=== PATIENT | male | born 1975 | race Caucasian/White ===

== ENCOUNTER 2025-08-23 09:20 | Outpatient (CLI) | payer OTHER, SELFPAY | END 2025-08-23 09:21 | disposition home or self-care (01) | LOC: NFLDREF 08-25 10:09 | PROVIDERS: Visit Provider Physician Assistant Medical | DX: Z00.00 Encounter for general adult medical examination without abnormal findings (principal); Z12.83 Encounter for screening for malignant neoplasm of skin | CPT/HCPCS: 80053; 80061; 84443; G0103 ==

== ENCOUNTER 2025-09-29 12:03 | Outpatient (CLI) | payer OTHER, SELFPAY ==
--- NOTE | 2025-09-29 13:53 | P.ANES_ITS ---
Anesthesia Charges Start Date/Time Anesthesia Start Date: 09/29/25 Anesthesia Start Time: 13:15 Stop Date/Time Anesthesia Stop Date: 09/29/25 Anesthesia Stop Time: 13:50 Coding CPT Codes CPT Codes: ESPERANZA LWR INTST NDSC NOS - [id number] ([id number]) P2 - PATIENT W/MILD SYST DISEASE, QK - CREPE MACHINE OPERATOR 2-4 CNCRNT ANES PROC, QX - SUGAR TRUCKER SVC W/ MD MED DIRECTION
--- NOTE | 2025-09-29 13:53 | W.ANESCHARGE ---
Anesthesia Charges Start Date/Time Anesthesia Start Date: 09/29/25 Anesthesia Start Time: 13:15 Stop Date/Time Anesthesia Stop Date: 09/29/25 Anesthesia Stop Time: 13:50 Coding CPT Codes CPT Codes: ESPERANZA LWR INTST NDSC NOS - [id number] ([id number]) P2 - PATIENT W/MILD SYST DISEASE, QK - CREDIT DIRECTOR 2-4 CNCRNT ANES PROC, QX - OPERATIONAL REVIEW SERGEANT SVC W/ MD MED DIRECTION
--- NOTE | 2025-09-29 14:41 | P.ANES_ITS ---
Anesthesia Charges Start Date/Time Anesthesia Start Date: 09/29/25 Anesthesia Start Time: 13:15 Stop Date/Time Anesthesia Stop Date: 09/29/25 Anesthesia Stop Time: 13:50 Coding CPT Codes CPT Codes: ESPERANZA LWR INTST NDSC NOS - [id number] ([id number]) QK - FUND RAISER 2-4 CNCRNT ESPERANZA PROC, QX - DIRECTOR SOFTWARE SVC W/ MD MED DIRECTION, P2 - PATIENT W/MILD SYST DISEASE
--- NOTE | 2025-09-29 14:41 | W.ANESCHARGE ---
Anesthesia Charges Start Date/Time Anesthesia Start Date: 09/29/25 Anesthesia Start Time: 13:15 Stop Date/Time Anesthesia Stop Date: 09/29/25 Anesthesia Stop Time: 13:50 Coding CPT Codes CPT Codes: ESPERANZA LWR INTST NDSC NOS - [id number] ([id number]) QK - SURVEY COMPILER 2-4 CNCRNT ESPERANZA PROC, QX - MECHANICAL SYSTEM TECHNICIAN SVC W/ MD MED DIRECTION, P2 - PATIENT W/MILD SYST DISEASE
== END 2025-09-29 12:04 | disposition home or self-care (01) ==
LOC: OP CLINIC 12:05
PROVIDERS: PCP Physician Assistant Medical; Visit Provider Surgery
DX: Z12.11 Encounter for screening for malignant neoplasm of colon (principal); D12.0 Benign neoplasm of cecum; D12.3 Benign neoplasm of transverse colon; D12.4 Benign neoplasm of descending colon; D12.5 Benign neoplasm of sigmoid colon; D12.8 Benign neoplasm of rectum; Z80.0 Family history of malignant neoplasm of digestive organs
CPT/HCPCS: 00811; 00812; 45385; J2704